=== PATIENT | male | born 2000 | race Hispanic/Latino ===

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

== ENCOUNTER 2022-01-20 22:21 | Emergency (ER) | payer SELFPAY ==
[2022-01-20] MEDS ORDERED: HYDROcodone/Acetaminophen 7.5/325 mg Tablet ONE (23:14)
== END 2022-01-20 23:51 | disposition home or self-care (01) ==
LOC: ERS 22:21
DX: K02.9 Dental caries, unspecified (principal)
CPT/HCPCS: 99282

== ENCOUNTER 2023-01-24 08:40 | Emergency (ER) | payer SELFPAY | END 2023-01-24 10:03 | disposition left against medical advice (07) | LOC: ERS 08:40 | DX: Z53.21 Procedure and treatment not carried out due to patient leaving prior to being seen by health care provider (principal) ==